=== PATIENT | male | born 1955 | race African-American/Black ===

== ENCOUNTER 2019-08-14 11:39 | Day surgery (SDC) | payer OTHER ==
[2019-08-14] MEDS ORDERED: PROPOFOL INJ 200 MG/20 ML VIAL IV ONE (13:40)
[2019-08-14] MEDS ORDERED: PROMETHAZINE HCL INJ 25 MG/1 ML VIAL IV PRN (14:59)
[2019-08-14] MEDS ORDERED: FENTANYL CITRATE INJ/PF 100 MCG/2 ML AMPUL IV PRN ×3 (14:59)
--- NOTE | 2019-08-14 15:17 | Operative Report ---
Operative Report DATE OF SURGERY: 08/14/19 Operative Report: The risks benefits and alternatives of the procedure explained to the patient in detail and informed consent is obtained.A GIF Olympus video scope was inserted into the patient's mouth and hypopharynx, the esophagus is identified intubated and insufflated, the scope was then advanced through the esophagus stomach and duodenum, retroflexion maneuver is done, the esophagus stomach and first and second portions of the duodenum examined. PREOPERATIVE DIAGNOSIS: Gastroesophageal reflux disease, Hardin's esophagus POSTOPERATIVE DIAGNOSIS: Hardin's esophagus status post ablation. Esophageal ulceration. Hiatal hernia. Gastritis status post biopsy OPERATION: EGD with radiofrequency ablation. EGD with biopsy SURGEON: NIKKO GUNTER ANESTHESIA: LMAC TISSUE REMOVED OR ALTERED: As noted above. COMPLICATIONS: None. ESTIMATED BLOOD LOSS: None. INTRAOPERATIVE FINDINGS: As noted above. PROCEDURE: Patient tolerated the procedure well. No immediate postprocedure complications are noted. Patient is discharged in good condition. Discharge date 08/14/2019. Discharge diet: Regular. Discharge activity: Regular. 2 to 3-week follow-up to discuss findings. Patient is instructed to call the office or proceed to the emergency room should there be any further questions.
[2019-08-14 16:08] VITALS: BP 103/65
== END 2019-08-14 16:05 | disposition home or self-care (01) ==
LOC: OROUT 11:39
PROVIDERS: ATTEND Internal Medicine Gastroenterology
DX: K29.50 Unspecified chronic gastritis without bleeding (principal); K44.9 Diaphragmatic hernia without obstruction or gangrene; K22.10 Ulcer of esophagus without bleeding; K21.9 Gastro-esophageal reflux disease without esophagitis
CPT/HCPCS: 43270; 43239; 82962; 88342 ×2; 88305 ×2; 00731; J2704; 731

== ENCOUNTER 2019-09-22 09:47 | Day surgery (SDC) | payer OTHER, MEDICAID ==
[~2019-09-22 09:47] MED LIST: PROPOFOL INJ 200 MG/20 ML VIAL IV ONE
[2019-09-22 11:59] VITALS: BP 114/74
--- NOTE | 2019-09-22 12:26 | Operative Report ---
Operative Report DATE OF SURGERY: 09/22/19 Operative Report: The risks benefits and alternatives of the procedure explained to the patient in detail and informed consent is obtained.A GIF Olympus video scope was inserted into the patient's mouth and hypopharynx, the esophagus is identified intubated and insufflated, the scope was then advanced through the esophagus stomach and duodenum, retroflexion maneuver is done, the esophagus stomach and first and second portions of the duodenum examined. PREOPERATIVE DIAGNOSIS: Follow-up esophageal ulceration POSTOPERATIVE DIAGNOSIS: Esophageal ulcers that is still present it is unclear if patient is taking his medication. There is risk of stricture formation. Hiatal hernia. Biopsies obtained to rule out for Hardin's esophagus. Persistent gastritis OPERATION: EGD with biopsy SURGEON: NIKKO GUNTER ANESTHESIA: LMAC TISSUE REMOVED OR ALTERED: As noted above. COMPLICATIONS: None. ESTIMATED BLOOD LOSS: None. INTRAOPERATIVE FINDINGS: As noted above. PROCEDURE: Patient tolerated the procedure well. No immediate postprocedure complications are noted. Patient is discharged in good condition. Discharge date 09/22/2019. Discharge diet: Regular. Discharge activity: Regular. 2 to 3-week follow-up to discuss findings. Patient is instructed to call the office or proceed to the emergency room should there be any further questions. Wait on the pathology.
== END 2019-09-22 11:58 | disposition home or self-care (01) ==
LOC: END 09:47
PROVIDERS: ATTEND Internal Medicine Gastroenterology
DX: K22.10 Ulcer of esophagus without bleeding (principal); F17.210 Nicotine dependence, cigarettes, uncomplicated; K44.9 Diaphragmatic hernia without obstruction or gangrene; K29.70 Gastritis, unspecified, without bleeding
CPT/HCPCS: 43239; 82962; 88305 ×2; 00731; J2704; 731